=== PATIENT | male | born 1990 | race African-American/Black ===

== ENCOUNTER 2022-06-14 09:53 | Emergency (ER) | payer BC, SELFPAY ==
--- NOTE | ~2022-06-14 | CT_ITS ---
EXAMINATION: CT abdomen pelvis w con DATE: 06/14/2022 11:34 INDICATION: Rectal pain, right buttock swelling TECHNIQUE: Computed tomography (CT) of the abdomen and pelvis was performed with 100 CC Omnipaque 350 intravenous contrast. Automated exposure control and iterative reconstruction technique were employe d. Exam dose: 1263.39 mGy-cm total exam DLP. COMPARISON: None. FINDINGS: There is a 2 x 2.6 cm encapsulated abscess of the inferomedial right buttock. The included lower lung zones are clear. Normal heart size. No pericardial or pleural effusion. Hepatic steatosis. No hepatic, splenic, pancreatic, and adrenal or renal space-occupying mass lesion. The gallbladder is unremarkable. No bile duct or pancreatic duct dilatation. No urinary tract calculus or hydroureteronephrosis. The urinary bladder is unremarkable. No bowel obstruction or intraperitoneal free air. There is evidence of appendectomy. Very small fat-containing umbilical hernia. Included skeletal structures are unremarkable. IMPRESSION: 2 x 2.6 cm abscess of inferomedial right buttock Hepatic steatosis Reviewed, dictated and finalized at [facility]. Reviewed, dictated and finalized at [facility].
--- NOTE | 2022-06-14 10:21 | ED.ABDPAIN ---
HPI - Abdominal Pain General Chief Complaint: Skin/Abscess/Foreign Body <NERY Gordillo Last Filed: 06/14/22 18:34> Stated Complaint: mass on my butt <NERY Gordillo Last Filed: 06/14/22 18:34> Time Seen by Provider: 06/14/22 09:59 <NERY Gordillo Last Filed: 06/14/22 18:34> History of Present Illness HPI narrative: Patient is a 31-year-old male here for evaluation of rectal bleeding over the past month. Patient states that the pain began as a dull ache, and was manageable with [id number] pain meds, but over the past several days, the pain is worsened and become severe. He states that sitting makes the pain worse and also having a bowel movement exacerbates the pain. He notes he is IBS, and is chronically constipated, currently on Linzess which has helped his constipation. He has never had a colonoscopy in the past. Reports intermittent nausea, but no fevers, chills, abdominal pain, blood in stool. <NERY Gordillo Last Filed: 06/14/22 18:34> Related Data Allergies/Adverse Reactions: Allergies Allergy/AdvReac Type Severity Reaction Status Date / Time No Known Allergies Allergy Verified 06/14/22 10:34 <NERY Gordillo Last Filed: 06/14/22 18:34> Review of Systems Review of Systems: Gen.: Denies fevers or chills Eyes: Denies eye pain or visual change ENT: Denies congestion Respiratory: Denies shortness of breath or cough CV: Denies chest pain or palpitations GI: Reports nausea. Denies abdominal pain, emesis or diarrhea reports rectal pain. Denies burning, urgency, frequency or hematuria Musculoskeletal: Denies back pain or muscle pain Neuro: Denies numbness, tingling, weakness or focal weakness Skin: Denies rash Except as documented, all other systems reviewed and negative <NERY Gordillo Last Filed: 06/14/22 18:34> Exam Narrative: APPEARANCE: Well appearing, no pain in distress, well-nourished. Head: Normocephalic and atraumatic. EYES: PERRLA/EOMI, conjunctivae clear NOSE: No nasal drainage EARS: External ear normal in appearance THROAT: Oropharynx is clear. Mucous membranes are moist. NECK: Supple. No adenopathy, no masses. RESPIRATORY: Airway patent, respirations nonlabored. Clear to auscultation bilaterally, no rales, rhonchi, wheezing. CARDIOVASCULAR: Regular rate and rhythm without murmurs, rubs, or gallops. ABDOMINAL: Normoactive bowel sounds. Soft, nontender, nondistended. No rebound tenderness or guarding. : Markedly tender to palpation in perirectal area with no visible abscess, hemorrhoid or anal fissure. Did not tolerate rectal exam. MUSCULOSKELETAL: Extremities are warm and well-perfused. Moves all extremities well. No edema. NEURO: Normal speech. No focal neurologic deficits. SKIN: Skin is warm and dry. No rashes. PSYCHIATRIC: Normal affect/mood.. <NERY Gordillo Last Filed: 06/14/22 18:34> Procedures Abscess I/D other: Date of Incision: 06/14/22 <NERY Gordillo Last Filed: 06/14/22 18:34> Time of Incision: 13:52 <NERY Gordillo Last Filed: 06/14/22 18:34> Side (if applicable): right <NERY Gordillo Last Filed: 06/14/22 18:34> Sedation/analgesia: none <NERY Gordillo Last Filed: 06/14/22 18:34> Local Anesthetic: lidocaine 1% and with epi <NERY Gordillo Last Filed: 06/14/22 18:34> Amount of anesthesia used (mL): 10 <NERY Gordillo Last Filed: 06/14/22 18:34> Technique: incised with #11 blade <NERY Gordillo Last Filed: 06/14/22 18:34> Amount of fluid expressed (mL): 15 <Zoë Malik PA-C - Last Filed: 06/14/22 18:34> Irrigation: No <Zoë Malik PA-C - Last Filed: 06/14/22 18:34> Packing used?: plain <Zoë
[2022-06-14 10:31] VITALS: BP 134/78; PULSE 58; RESP 16; TEMP 36.4; O2SAT 98
[2022-06-14 11:05] LABS: Basophils Percent Auto 0.5 % (0.2-1.2); Eosinophils Absolute Auto 0.1 K/mm3 (0-0.3); Eosinophils Percent Auto 1.4 % (0-4.4); Hematocrit 43.5 % (42.0-52.0); Hemoglobin 14.9 g/dL (14.0-18.0); Immature Granulocyte Absolute 0.02 K/mm3 (0.00-0.031); Immature Granulocyte Percent A 0.3 % (0-0.5); Lymphocytes Absolute Auto 2.52 K/mm3 (0.9-3.2); Lymphocytes Percent Auto 31.6 % (18.3-44.2); Mean Corpuscular HGB Conc 34.3 g/dl (32-36); Mean Corpuscular Hemoglobin 30.3 pg (26-34); Mean Corpuscular Volume 88.4 fl (80-100); Mean Platelet Volume 10.6 fl (7.4-10.4); Monocytes Absolute Auto 0.8 K/mm3 (0.1-0.6); Monocytes Percent Auto 10.2 % (2.6-8.5); Neutrophils Absolute Auto 4.5 K/mm3 (1.3-6.7); Platelet Count Result 222 k/mm3 (150-375); Red Blood Count 4.92 M/mm3 (4.6-6.20); Red Cell Distribution Width 12.3 % (11.5-14.5)
[2022-06-14] MEDS: KETOROLAC 15 MG/ML VIAL (*BKC) IV PUSH (11:08)
[2022-06-14 11:14] LABS: Alanine Aminotransferase 51 U/L (6-50); Alkaline Phosphatase 79 U/L (38-126); Anion Gap 5 mmol/L (8-16); Aspartate Amino Transferase 35 U/L (17-59); Bilirubin,Total 0.5 mg/dL (0.2-1.3); Blood Urea Nitrogen 9 mg/dL (9-20); Calcium 8.6 mg/dL (8.4-10.2); Carbon Dioxide 20 mmol/L (22-30); Chloride 107 mmol/L (98-107); Estimated CRCL calculation 150 ml/min; Estimated Glomerular Filt Rate > 60; Glucose 103 mg/dL (65-110); Potassium 4.2 mmol/L (3.4-5.0); Sodium 132 mmol/L (137-145)
[2022-06-14 13:04] LABS: Add Urine Microscopic? NO; Appearance Urine Clear (Clear); Bilirubin Urine Negative (Negative); Blood Urine Negative (Negative); Color Urine Yellow (Yellow); Glucose Urine UA Negative (Negative); Ketones Urine Negative (Negative); Leukocyte Esterase Ur Negative LEU/UL (Negative); Nitrate Urine Negative (Negative); Protein Urine Negative (Negative); Urobilinogen Urine 0.2 mg/dL (<2.0)
[2022-06-14 14:46] VITALS: BP 126/47; PULSE 63; RESP 20; O2SAT 99
== END 2022-06-14 14:48 | disposition home or self-care (01) ==
PROVIDERS: Physician Assistant; Emergency Provider Emergency Medicine; PCP Nurse Practitioner Family
DX: L02.31 Cutaneous abscess of buttock (principal); K76.0 Fatty (change of) liver, not elsewhere classified
CPT/HCPCS: 10061; 36415; 74177; 80053; 81003; 85025; 96374; 99284; J1885; Q9967